=== PATIENT | female | born 1995 | race Caucasian/White ===

== ENCOUNTER 2017-09-08 17:12 | Emergency (ER) | payer OTHER ==
[2017-09-08] MEDS ORDERED: AMOXICILLIN TR/POT CLAVULANATE 500-125 MG TAB PO ONE (17:36)
[2017-09-08] MEDS ORDERED: AMOXICILLIN TRIHYDRATE 500 MG CAPSULE PO ONE (17:36)
--- NOTE | 2017-09-08 17:37 | ER Document Report ---
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 Left nares earring is hurting to take out. Tetanus not current. Dogs rabies in up to date. 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- [employer] Lives with: Parents Family History: CAD, Hypertension Endocrine Medical History: Reports: Hx Diabetes Mellitus Type 1 Past Surgical History: Reports: Other - left renal surgery-non functioning Vertical Provider Document - CONSTITUTIONAL Agree With Documented VS: Yes Exam Limitations: No Limitations General Appearance: No Apparent Distress - HEENT HEENT: Normocephalic Notes: 2 small superficial puntures bilateral external nares at labial folds - NECK Neck: Supple - MUSCULOSKELETAL/EXTREMETIES Musculoskeletal/Extremeties: MAEW - NEURO Level of Consciousness: Awake - DERM Notes: see above Course - Vital Signs Vital signs: Temp Pulse Resp BP Pulse Ox 97.9 F 80 18 131/74 H 98 09/08/17 17:17 09/08/17 17:17 09/08/17 17:17 09/08/17 17:17 09/08/17 17:17 Discharge - Discharge Clinical Impression: dogbite to nose Condition: Good Disposition: HOME, SELF-CARE Instructions: Animal Bites ([facility]), Augmentin ([facility]), Soap Cleansing ([facility]) Additional Instructions: clean with antibacterial soap augmentin for 5 day wound check tomorrow return any signs of infection tylenol for discomfort Prescriptions: Amoxicillin/Potassium Clav [Augmentin 875-125 Tablet] 1 each PO BID #10 tablet Forms: Return to Work
[2017-09-08] MEDS ORDERED: DIPH/PERTUSS(ACELL)/TETANUS VAC/PF 0.5 ML SYR (>=10YO) IM ONE (18:01)
[2017-09-08] MEDS ORDERED: IBUPROFEN 800 MG TABLET PO ONE (18:02)
[2017-09-08] MEDS ORDERED: ONDANSETRON 4 MG TAB.RAPDIS PO ONE (18:02)
[2017-09-08] MEDS ORDERED: ACETAMINOPHEN 325 MG TABLET PO ONE (18:05)
[2017-09-08 18:55] VITALS: BP 128/74
== END 2017-09-08 19:02 | disposition home or self-care (01) ==
LOC: ER 17:12
DX: S01.25XA Open bite of nose, initial encounter (principal); W54.0XXA Bitten by dog, initial encounter; Y93.K3 Activity, grooming and shearing an animal; Y92.512 Supermarket, store or market as the place of occurrence of the external cause; Y99.0 Civilian activity done for income or pay; E10.9 Type 1 diabetes mellitus without complications; Z23 Encounter for immunization
CPT/HCPCS: 99283; 90471; 90715; S0119